=== PATIENT | female | born 1995 | race Caucasian/White ===

== ENCOUNTER 2016-11-30 15:27 | Emergency (ER) | payer OTHER ==
[~2016-11-30] VITALS: Ht 152.4 cm; Wt 49.9 kg
[~2016-11-30 15:27] MED LIST: AGM875T PO; CETI10CA PO; FLC150T PO; LACT1CAP62 PO; NF-XOP-HFA INH; RT-FLOV110 INH
--- OUTSIDE RECORDS SUMMARY | 2016-11-30 15:32 | XMS REPORT | Continuity of Care Document ---
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 Name Role Phone NO, LOCAL PHYSICIAN PCP Unavailable Insurance Providers Payer Name Policy Number Subscriber Name Relationship Unknown Advance Directives Directive Response Recorded Date/Time Advance Directives No 07/09/14 11:51am Resuscitation Status Full Code 07/09/14 11:51am Problems Medical Problems Problem Onset Date Status Dog bite Unknown Active Medications Medication Dose Route Sig Days/Qty Instructions Order Date Discontinued Date Status Cetirizine Hcl 10 Mg PO DAILY 07/09/14 Active Fluticasone Propionate 1 Puff INH 07/09/14 Active Levalbuterol 15 Gm INH 07/09/14 Active Amoxicillin/Clavulanate K 1 Tab PO TWICE A DAY 20 Qty 07/09/14 Active Fluconazole 1 Each PO ONCE 1 Qty 07/09/14 Active Social History Social History Problem Response Recorded Date/Time Alcohol Use Denies Use 07/09/2014 11:51am Recreational Drug Use No 07/09/2014 11:51am Smoking Status Never a Smoker 07/09/2014 11:51am Query Response Start Date Stop Date Smoking Status Never a Smoker Hospital Discharge Instructions No hospital discharge instructions. Plan of Care No plan of care. Functional Status No functional status results. Allergies, Adverse Reactions, Alerts Allergen Type Severity Reaction Status Last Updated ibuprofen Allergy Unknown Active 07/09/14 Immunizations Name Given Type Tetanus Booster (TDap) Unknown Historical RIG 07/09/14 Administered rabies, intramuscular injection 07/09/14 Administered Vital Signs Acute Vital Signs Vital Response Date/Time Temperature (Fahrenheit) 97.9 degrees F (97.6 - 99.5) Temperature Source Temporal Pulse Rate (Adolescent 12-19yrs) 56 bpm (56 - 106) Respiratory Rate (Adolescent 12-19yrs) 18 bpm (15 - 20) Blood Pressure / Blood Pressure Systolic (Adolescent 12-19yrs) 107 mm Hg (115 - 120) Pain Pain Intensity 3 Height (Feet) 5 feet Height (Calculated Centimeters) 152.845982 cm Weight (Pounds) 116 pounds Weight (Calculated Kilograms) 52.593110 kilograms Height 5 ft 0 in Weight 116 lb Body Mass Index 22.7 kg/m^2 Results No known relevant diagnostic tests, laboratory data and/or discharge summary. Procedures No known history of procedures. Encounters Encounter Location Date/Time Departed Emergency Room [facility] 07/09/14 11:45am Recent Diagnosis
--- NOTE | 2016-11-30 17:03 | Diagnostic Imaging Report ---
INDICATION: Cough and shortness of breath. COMPARISON: None. EXAMINATION: Frontal and lateral views of the chest were obtained. FINDINGS: Clear lungs, bilaterally. The heart size is normal. There is no pneumothorax. Osseous structures are normal. IMPRESSION: Negative chest. Dictated by: Dictated on workstation # [id number]
[2016-11-30] MEDS ORDERED: cefTRIAXone 1 GM (ROCEPHIN) VIAL IM ONE (18:15)
[2016-11-30] MEDS ORDERED: LIDOCAINE 1% INJ 20 ML (XYLOCAINE) VIAL INJ ONE (18:15)
[2016-11-30] MEDS ORDERED: BENZ-13 PO (18:19)
[2016-11-30] MEDS ORDERED: CEFD300C3 PO (18:19)
[2016-11-30] MEDS ORDERED: FLUT9.9S NS (18:19)
[2016-11-30] MEDS ORDERED: METH4TAB PO (18:19)
[2016-11-30] MEDS ORDERED: LORA1TAB59 PO (18:19)
--- NOTE | 2016-11-30 18:19 | ED Cough/URI ---
General Chief Complaint: Cough/Cold/Flu Symptoms Stated Complaint: COUGH/SOA Nursing Triage Note: PT REPORTS COUGH X 2 WEEKS. CONGESTION ET COUGH WORSENING. PT TOOK SOME LEFTOVER PREDNISONE AT HOME. 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, AND HAS CONTINUED TO PRACTICE AND RUN AT LEAST THIS MUCH EVERY DAY HAS NOT SOUGHT CARE UNTIL TODAY LAST SIMILAR EPISODE WAS AUGUST 2016 [facility] Allergies and Home Medications Allergies Coded Allergies: ibuprofen (Unverified Allergy, Unknown, 07/09/14) Home Medications Benzonatate 100 Mg Capsule #30 1-2 TAB PO TID Prescribed by: UJSTEN BLACKWOOD on 11/30/161818 Cefdinir 300 Mg Capsule #20 300 MG PO BID Prescribed by: JUSTEN BLACKWOOD on 11/30/161818 Fluticasone Propionate 1 Puff Puff 1 PUFF INH (Reported) Fluticasone Propionate 9.9 Ml Cohagen.susp #1 2 SPRAYS NS BID Prescribed by: JUSTEN BLACKWOOD on 11/30/161818 Levalbuterol 15 Gm Inha 15 GM INH (Reported) Loratadine/Pseudoephedrine 1 Each Tab.er.12h #30 1 EACH PO BID Prescribed by: JUSTEN BLACKWOOD on 11/30/161818 Methylprednisolone 4 Mg Tab.ds.pk #1 4 MG PO UD Prescribed by: JUSTEN BLACKWOOD on 11/30/161818 Constitutional: no symptoms reported EENTM: nose congestion Respiratory: see HPI cough dyspnea on exertion short of breath wheezing Cardiovascular: no symptoms reportedNo chest pain Gastrointestinal: no symptoms reported Genitourinary: no symptoms reported LMP: Nov 25, 2016 (NORMAL, NO CONTROL) Musculoskeletal: no symptoms reported Skin: no symptoms reported Psychiatric/Neurological: No Symptoms Reported Hematologic/Lymphatic: No Symptoms Reported Immunological/Allergic: no symptoms reported Past Yrderwd-Cmrfdh-Ygyfrr Hx Patient Social History Alcohol Use: Denies Use Recreational Drug Use: No Smoking Status: Never a Smoker Recent Foreign Travel: No Contact w/Someone Who Travel: No Recent Infectious Disease Expo: No Recent Hopitalizations: No Immunizations Up To Date Tetanus Booster (TDap): Unknown Seasonal Allergies Seasonal Allergies: Yes Surgeries HX Surgeries: No Respiratory Hx Respiratory Disorders: Yes (SEASONAL ASTHMA) Respiratory Disorders: Asthma Cardiovascular Hx Cardiac Disorders: No Neurological Hx Neurological Disorders: No Reproductive System Female Reproductive Disorders: Denies Genitourinary Hx Genitourinary Disorders: No Gastrointestinal Hx Gastrointestinal Disorders: No Musculoskeletal Hx Musculoskeletal Disorders: No Endocrine Hx Endocrine Disorders: No HEENT HX ENT Disorders: No Cancer Hx Cancer: No Psychosocial Hx Psychiatric Problems: No Physical Exam Vital Signs Vital Sign - Last 12Hours 11/30/16 11/30/16 11/30/16 15:40 16:26 18:42 Temp 98.5 Pulse 62 Resp 16 B/P 118/69 Pulse Ox 96 O2 Delivery Room Air Capillary Refill : Less Than 3 Seconds General Appearance: WD/WN no apparent distress HEENT: PERRL/EOMI TMs normal other (NASAL CONGESTION, NO SINUS TENDERNESS) Neck: non-tender full range of motion supple normal inspection Respiratory: normal breath sounds no respiratory distress no accessory muscle use Cardiovascular: normal peripheral pulses regular rate, rhythm no edema no JVD no murmur Gastrointestinal: normal bowel sounds non tender soft Extremities: normal inspection Neurologic/Psychiatric: animation director II-XII nml as tested no motor/sensory deficits alert normal mood/affect oriented x 3 Skin: normal color warm/dry Progress/Results/Core Measures Results/Orders Micro Results Microbiology 11/30/16 Influenza Types A,B Antigen (TIGRE) - Final, Complete My Orders Orders-JUSTEN BLACKWOOD DO Influenza A And B Antigens (11/30/16 18:15) Ceftriaxone Injection (Rocephin Injectio (11/30/16 18:15) Lidocaine 1% Injection (Xylocaine 1% Inj (11/30/16 18:15) Benzonatate Capsule (Tessalon Perles) (11/30/16 21:00) Vital Signs/I&O Vital Sign - Last 12Hours 11/30/16 11/30/16 11/30/16 15:40 16:26 18:42 Temp 98.5 Pulse 62 58 Resp 16 16 B/P 118/69 Pulse Ox 96 O2 Delivery Room Air Blood Pressure Mean: 85 Diagnostic Imaging Comments CXR--NO ACUTE PROCESS, PER RADIOLOGIST REPORT Reviewed: Reviewed by Me Departure Impression Impression: Primary Impression: Bronchitis Additional Impressions: Asthma exacerbation Upper respiratory infection Disposition: 01 HOME, SELF-CARE Condition: Stable Departure-Patient Inst. Referrals: [facility] (PCP/Family) Primary Care Physician Patient Instructions: Acute Bronchitis, Adult (DC), Asthma, Adult (DC), Bacterial Upper Respiratory Infection, Adult (DC) Add. Discharge Instructions: USE YOUR INHALERS AND NEBULIZER PRESCRIBED BONNIEITUSCOLLIN DM FOR COUGH TYLENOL NEEDED FOR PAIN OR FEVER LOTS OF CLEAR LIQUIDS FOLLOW UP WITH [facility] IN 2-3 DAYS IF NO BETTER RETURN TO ER IF WORSE All discharge instructions reviewed with patient and/or family. Voiced understanding. Scripts Methylprednisolone (Medrol)4 Mg Tab.ds.pk4 Mg PO UD #1 PKG Prov:JUSTEN BLACKWOOD DO 11/30/16 Fluticasone Propionate (Flonase Allergy Relief)9.9 Ml Cohagen.susp2 Sprays NS BID #1 SPRAY Prov:JUSTEN BLACKWOOD DO 11/30/16 Loratadine/Pseudoephedrine (Claritin-D 12 Hour Tablet)1 Each Tab.er.12h1 Each PO BID Congestion #30 TAB Prov:JUSTEN BLACKWOOD DO 11/30/16 Cefdinir 300 Mg [id number] Mg PO BID FOR INFECTION #20 CAP Prov:JUSTEN BLACKWOOD DO 11/30/16 Benzonatate (Tessalon Perle)100 Mg Capsule1-2 Tab PO TID Cough #30 CAP Prov:JUSTEN BLACKWOOD DO 11/30/16 JUSTEN BLACKWOOD DO Nov 30, 2016 18:19
[2016-11-30 18:42] VITALS: BP 116/60
[2016-11-30] MEDS ORDERED: BENZONATATE 100 MG (TESSALON) CAPSULE PO SCH (21:00)
== END 2016-11-30 18:42 | disposition home or self-care (01) ==
LOC: EDUNIT# 15:27 → ER 15:28
DX: J06.9 Acute upper respiratory infection, unspecified (principal); J40 Bronchitis, not specified as acute or chronic
CPT/HCPCS: 71020; 87804; 96372; 99282